=== PATIENT | male | born 1955 | race Caucasian/White ===

== ENCOUNTER → 2021-12-03 | Outpatient (CLI) | payer OTHER ==
--- NOTE | 2021-12-03 11:00 | KCIC ---
EXAM: Chest, 2 views. HISTORY: Pain. COMPARISON: None. FINDINGS: 2 views of chest are obtained. There is no infiltrate, pleural effusion or pneumothorax. Th e heart is normal in size. IMPRESSION: No acute pulmonary finding. Electronically signed by: Alona Xie MD (12/03/2021 10:57 AM) [id number]
== END ==
LOC: KCIC 09:59
PROVIDERS: ATTEND Family Medicine
DX: I20.8 Other forms of angina pectoris (principal)
CPT/HCPCS: 71046